=== PATIENT | female | born 1960 | race Caucasian/White ===

== ENCOUNTER 2024-01-04 07:51 | Day surgery (SDC) | payer MEDICARE, OTHER ==
[~2024-01-04 07:51] MED LIST: Lidocaine 2% 5 ML SDV ONE; Propofol 200 MG/20 ML SDV ONE; Sodium Chloride 0.9% 10 ML Syringe FLUSH PRN; Sodium Chloride 0.9% 2.5 ML Syringe FLUSH PRN; Sodium Chloride 0.9% 20 ML SDV IV PRN
[2024-01-04] MEDS: Lactated Ringers 1,000 ML IV SCH (08:13)
== END 2024-01-04 10:15 | disposition home or self-care (01) ==
LOC: MW.SDS 07:51
PROVIDERS: ATTEND Surgery
DX: R13.10 Dysphagia, unspecified (principal); F32.A Depression, unspecified; Z79.899 Other long term (current) drug therapy; Z88.0 Allergy status to penicillin; Z88.2 Allergy status to sulfonamides
CPT/HCPCS: 43239; 88305; J2704; J7120; 00731; J3490